=== PATIENT | female | born 1945 ===

== ENCOUNTER 2024-02-23 07:15 | Inpatient (IN) | payer OTHER ==
[~2024-02-23] VITALS: Ht 157.5 cm; Wt 75.7 kg
[2024-02-23 09:07] LABS: HEMATOCRIT 35.6 % (36.0-45.00); HEMOGLOBIN 12.3 g/dL (12.0-15.00); MEAN CELL VOLUME 93.4 fL (80.00-100.00); MEAN CORPUSCULAR HEMOGLOBIN 32.2 pg (27.00-32.0); MEAN CORPUSCULAR HGB CONC 34.5 g/dl (32.0-36.0); PLATELET COUNT 145 K/uL (150-450); RED BLOOD COUNT 3.82 M/uL (4.00-6.00); RED CELL DISTRIBUTION WIDTH 13.7 % (11.5-14.5)
[2024-02-23 09:32] LABS: PH,URINE 6.5 (5.0-8.0); URINE APPEARANCE Clear; URINE BILIRRUBIN Negative (NEGATIVE); URINE BLOOD Negative; URINE COLOR Yellow; URINE GLUCOSE Negative (NEGATIVE); URINE KETONE Negative (NEGATIVE); URINE LEUKOCYTE Negative; URINE NITRATE Negative; URINE PROTEIN Negative (NEGATIVE); URINE UROBILINOGEN 0.2 E.U./dl
[2024-02-23 09:34] LABS: INR 1.55
[2024-02-23 09:34] LABS: URINE BACTERIA 20.1 uL (0.0-1933)
[2024-02-23 09:36] LABS: PARTIAL THROMBOPLASTIN TIME 44.2 SECONDS (22.0-34.0); PROTHROMBIN TIME 15.8 SECONDS (9.0-11.5)
[2024-02-23 09:39] LABS: CALCIUM 9.8 mg/dL (8.5-10.1); CREATININE SERUM 0.82 mg/dL (0.55-1.02); GFR 67.25; POTASSIUM 3.32 mEq/L (3.5-5.1)
[2024-02-23 09:42] LABS: URINE CAST 0.15 uL (0.0-1.40); URINE WBC 0.3 uL (0.0-23.2)
[2024-02-23] MEDS ORDERED: AVAPRO300 MG PO (14:46)
[2024-02-23] MEDS ORDERED: CARVEDILOL25 M1 PO (14:46)
[2024-02-23] MEDS ORDERED: STAHIST AD TAB1 EACH PO (14:47)
[2024-02-23] MEDS ORDERED: ARICEPT10 MG PO (14:48)
[2024-02-23] MEDS ORDERED: LIPITOR20 MG PO (14:48)
[2024-02-23] MEDS ORDERED: HYDRALAZINE HC100 MG PO (14:48)
[2024-02-23] MEDS ORDERED: ROSUVASTATIN CA20 MG PO (14:48)
[2024-02-23] MEDS ORDERED: ZOLOFT50 MG PO (14:48)
[2024-02-29] MEDS ORDERED: CEFTRIAXONE SODIUM 2,000 MG VIAL IV ONE (11:30)
[2024-02-29] MEDS ORDERED: LIDOCAINE HCL 1%/EPINEPHRINE 20ML VIAL IJ ONE (11:45)
[2024-02-29] MEDS ORDERED: MORPHINE SULFATE 4 MG/ML VIAL IV ONE (11:45)
[2024-02-29] MEDS ORDERED: METHYLPREDNISOLONE ACETATE 80 MG/ML VIAL IM ONE (11:45)
[2024-02-29] MEDS ORDERED: TRANEXAMIC ACID 100MG/1ML (1000MG) AMPUL IV ONE ×2 (11:45)
[2024-02-29] MEDS ORDERED: BUPIVACAINE HCL 30 ML VIAL IJ ONE (11:45)
[2024-02-29] MEDS ORDERED: KETOROLAC TROMETHAMINE 60 MG VIAL IM ONE (11:45)
[2024-02-29] MEDS ORDERED: MORPHINE SULFATE 4 MG/ML VIAL IV PRN (13:15)
[2024-02-29] MEDS ORDERED: SODIUM CHLORIDE 0.45 % 1,000 ML IV SCH (13:15)
[2024-02-29] MEDS ORDERED: MORPHINE SULFATE 2 MG/ML CARTRIDGE IV NR (13:15)
[2024-02-29] MEDS ORDERED: ONDANSETRON HCL 2 MG/ML VIAL IV PRN (13:15)
[2024-02-29 16:06] LABS: HEMATOCRIT 33.2 % (36.0-45.00); HEMOGLOBIN 11.3 g/dL (12.0-15.00); RED BLOOD COUNT 3.44 M/uL (4.00-6.00)
[2024-02-29] MEDS ORDERED: CARVEDILOL 25 MG TABLET PO SCH (17:00)
[2024-02-29] MEDS ORDERED: hydrALAZINE HCL 50 MG TABLET PO SCH (17:00)
[2024-02-29] MEDS ORDERED: GENTAMICIN SULFATE 40 MG/ML VIAL IV SCH (21:00)
[2024-02-29] MEDS ORDERED: ENALAPRILAT DIHYDRATE 1.25 MG/ML VIAL IV PRN (21:00)
[2024-03-01] MEDS ORDERED: TRAMADOL HCL 50 MG TABLET PO PRN (08:15)
[2024-03-01] MEDS ORDERED: IRBESARTAN 300 MG TABLET PO SCH (09:00)
[2024-03-01] MEDS ORDERED: IRON FUM,PS/FOLIC/BCOMP,C NO.9 1 CAP CAPSULE PO SCH (09:00)
[2024-03-01] MEDS ORDERED: SENNA/DOCUSATE SODIUM 1 TAB TABLET PO SCH (09:00)
[2024-03-01] MEDS ORDERED: RIVAROXABAN 10 MG TAB PO SCH (09:00)
[2024-03-01] MEDS ORDERED: ATORVASTATIN CALCIUM 20 MG TABLET PO SCH (09:00)
[2024-03-01] MEDS ORDERED: BACITRACIN 28.35 GM OINT.TUBE TOP SCH (09:00)
[2024-03-01] MEDS ORDERED: CEFTRIAXONE SODIUM 2,000 MG in 0.9 % SODIUM CHLORIDE 100 ML IV SCH (09:00)
[2024-03-01 09:51] LABS: HEMATOCRIT 31.2 % (36.0-45.00); HEMOGLOBIN 10.7 g/dL (12.0-15.00); MEAN CELL VOLUME 94.9 fL (80.00-100.00); MEAN CORPUSCULAR HEMOGLOBIN 32.5 pg (27.00-32.0); MEAN CORPUSCULAR HGB CONC 34.2 g/dl (32.0-36.0); PLATELET COUNT 144 K/uL (150-450); RED BLOOD COUNT 3.29 M/uL (4.00-6.00); RED CELL DISTRIBUTION WIDTH 14.1 % (11.5-14.5)
[2024-03-02] MEDS ORDERED: TRAMADOL HCL50 MG PO (06:18)
[2024-03-02] MEDS ORDERED: BACTRIM DS TAB1 EACH PO (06:18)
[2024-03-02] MEDS ORDERED: INTEGRA PLUS C1 EACH PO (06:18)
[2024-03-02] MEDS ORDERED: XARELTO10 MG PO (06:18)
[2024-03-02 07:56] LABS: HEMATOCRIT 25.7 % (36.0-45.00); MEAN CELL VOLUME 93.8 fL (80.00-100.00); MEAN CORPUSCULAR HEMOGLOBIN 32.8 pg (27.00-32.0); RED BLOOD COUNT 2.74 M/uL (4.00-6.00)
[2024-03-02 08:03] LABS: PLATELET COUNT 115 K/uL (150-450)
[2024-03-02] MEDS ORDERED: OxyCODONE HCL/APAP UD (PERCOCET) PO NR (10:30)
== END 2024-03-02 20:02 | disposition home or self-care (01) | DRG 470 ==
LOC: O/R 02-29 06:21 → SURH 02-29 07:15
PROVIDERS: ADMIT Orthopaedic Surgery Sports Medicine; ATTEND Orthopaedic Surgery Sports Medicine
PROC: 0SRD0J9 Replacement of Left Knee Joint with Synthetic Substitute, Cemented, Open Approach (ICD-10-PCS; principal; 2024-02-29 11:30)
DX: M17.12 Unilateral primary osteoarthritis, left knee (principal); I69.820 Aphasia following other cerebrovascular disease; I10 Essential (primary) hypertension

== ENCOUNTER 2024-02-29 07:14 | Outpatient (CLI) | payer OTHER ==
[~2024-02-29 07:14] MED LIST: ARICEPT10 MG PO; AVAPRO300 MG PO; CARVEDILOL25 M1 PO; HYDRALAZINE HC100 MG PO; LIPITOR20 MG PO; ROSUVASTATIN CA20 MG PO; STAHIST AD TAB1 EACH PO; ZOLOFT50 MG PO
[2024-02-29 08:08] LABS: INR 1.11
[2024-02-29 08:11] LABS: PARTIAL THROMBOPLASTIN TIME 38.3 SECONDS (22.0-34.0); PROTHROMBIN TIME 11.6 SECONDS (9.0-11.5)
== END 2024-02-29 15:20 | disposition home or self-care (01) ==
LOC: LAB 07:14
PROVIDERS: ATTEND Anesthesiology
DX: D68.9 Coagulation defect, unspecified (principal)